=== PATIENT | male | born 1985 | race Caucasian/White ===

== ENCOUNTER 2016-07-22 12:52 | Inpatient (IN) | payer OTHER ==
[~2016-07-22] VITALS: Ht 182.9 cm; Wt 102.1 kg
[2016-07-22] MEDS ORDERED: SODIUM CHLORIDE 0.9% 1,000 ML IV ONE ×2 (12:54)
[2016-07-22] MEDS ORDERED: KETOROLAC TROMETH 30 MG/ML 1ML VIAL IV ONE (13:00)
[2016-07-22 13:59] LABS: Basophils # (auto) 0.1 uL; Basophils % (auto) 0.7 % (0.0-2.0); Eosinophils # (auto) 0.2 uL; Eosinophils % (auto) 1.7 % (0.0-7.0); Hematocrit 46.2 % (41.0-53.0); Hemoglobin 15.7 g/dL (13.5-17.5); Lymphocytes # (auto) 1.4 uL; Lymphocytes % (auto) 11.7 % (10.0-50.0); Mean Corpuscular Hemoglobin 31.4 pg (28.0-32.0); Mean Corpuscular Hgb Conc. 33.9 g/dL (32.0-36.0); Mean Corpuscular Volume 92.6 fL (80.0-100.0); Mean Platelet Volume 8.8 fL (7.4-10.4); Monocytes # (auto) 0.8 uL; Neutrophils # (auto) 9.6 uL; Neutrophils % (auto) 78.9 % (37.0-80.0); Platelet Count (auto) 328 10^3/uL (140-450); Red Cell Distribution Width 12.4 % (11.6-16.0); White Blood Cell 12.1 10^3/uL (4.4-10.8)
[2016-07-22 14:13] LABS: Anion Gap 10 (5-15); Aspartate Aminotransferase 30 U/L (15-37); Blood Urea Nitrogen 20 mg/dL (7-18); Carbon Dioxide 24 mmol/L (21-32); Chloride 108 mmol/L (98-107); GFR African American 105 mL/min; GFR Non-African American 87 mL/min; Glucose 94 mg/dL (74-106); Potassium 4.1 mmol/L (3.5-5.1); Sodium 142 mmol/L (136-145)
[2016-07-22] MEDS ORDERED: cefTRIAXone 1GM/50ML D5W 50 ML IV ONE ×2 (14:15→18:30)
[2016-07-22 14:18] LABS: Alkaline Phosphatase 75 U/L (45-117); Bilirubin, Total 0.9 mg/dL (0.2-1.0); Total Protein 7.3 g/dL (6.4-8.2)
[2016-07-22] MEDS ORDERED: ONDANSETRON HCL 4 MG/2 ML VIAL IV ONE (14:45)
[2016-07-22] MEDS ORDERED: MORPHINE SULFATE 4 MG/ML SYRG IV ONE (14:45)
[2016-07-22] MEDS ORDERED: HYDROcodone-ACET 10/325MG TAB PO ONE (17:15)
[2016-07-22] MEDS ORDERED: TEMAZEPAM 15 MG CAP PO PRN (18:15)
[2016-07-22] MEDS ORDERED: MORPHINE SULF INJ 2 MG/ML SYRINGE 1ML IV PRN (18:15)
[2016-07-22] MEDS ORDERED: ACETAMINOPHEN 325 MG TAB PO PRN (18:15)
[2016-07-22] MEDS ORDERED: ONDANSETRON HCL 4 MG/2 ML VIAL IV PRN (18:15)
[2016-07-22] MEDS ORDERED: NITROGLYCERIN 0.4 MG SL TAB SL PRN (18:15)
[2016-07-22] MEDS ORDERED: cloNIDine HCL 0.1 MG TAB PO PRN (18:30)
[2016-07-22] MEDS ORDERED: MULTIPLE VITAMIN TAB PO ONE (18:30)
[2016-07-22] MEDS: SODIUM CHLORIDE 0.9% 1,000 ML IV SCH (18:40)
[2016-07-22] MEDS: MORPHINE SULF INJ 2 MG/ML SYRINGE 1ML IV PRN (21:13)
[2016-07-22] MEDS: HYDROcodone-ACET 5/325MG TAB PO PRN (21:26)
[2016-07-22 21:51] VITALS: BP 133/78
[2016-07-22] MEDS ORDERED: SERT-135 PO (23:46)
[2016-07-22] MEDS ORDERED: LOSA50TA6 PO (23:46)
[2016-07-23 01:17] VITALS: BP 133/78
[2016-07-23] MEDS: SODIUM CHLORIDE 0.9% 1,000 ML IV SCH ×3 (03:06→21:59)
[2016-07-23 04:55] VITALS: BP 112/69
[2016-07-23] MEDS: HYDROcodone-ACET 5/325MG TAB PO PRN ×4 (06:18→20:54)
[2016-07-23 06:39] LABS: Basophils # (auto) 0.1 uL; Basophils % (auto) 0.5 % (0.0-2.0); Eosinophils # (auto) 0.3 uL; Eosinophils % (auto) 2.5 % (0.0-7.0); Hematocrit 42.7 % (41.0-53.0); Hemoglobin 14.6 g/dL (13.5-17.5); Lymphocytes # (auto) 1.6 uL; Lymphocytes % (auto) 15.4 % (10.0-50.0); Mean Corpuscular Hemoglobin 31.5 pg (28.0-32.0); Mean Corpuscular Hgb Conc. 34.2 g/dL (32.0-36.0); Mean Corpuscular Volume 91.9 fL (80.0-100.0); Mean Platelet Volume 8.7 fL (7.4-10.4); Monocytes # (auto) 0.7 uL; Monocytes % (auto) 6.6 % (0.0-12.0); Platelet Count (auto) 286 10^3/uL (140-450); Red Cell Distribution Width 13.4 % (11.6-16.0); White Blood Cell 10.6 10^3/uL (4.4-10.8)
[2016-07-23 06:51] LABS: INR 0.95 (0.9-1.15); Prothrombin Time 10.3 sec (9.37-12.3)
[2016-07-23 07:01] LABS: Albumin 3.2 g/dL (3.4-5.0); BUN/Creatinine Ratio 18.4; Bilirubin, Total 0.4 mg/dL (0.2-1.0); Calcium 8.5 mg/dL (8.5-10.1); Potassium 4.4 mmol/L (3.5-5.1); Total Protein 6.3 g/dL (6.4-8.2)
[2016-07-23 07:22] LABS: Urine Bilirubin Negative (Negative); Urine Blood TRACE /uL (Negative); Urine Color Yellow (Yellow); Urine Glucose Normal (Normal); Urine Ketone Negative (Negative); Urine Nitrite Negative (Negative); Urine RBC <1 /hpf (0 - 3); Urine Urobilinogen Normal (Negative); Urine pH 6.5 (5.0-8.0)
[2016-07-23 09:00] VITALS: BP 127/73
[2016-07-23] MEDS: cefTRIAXone 1GM/50ML D5W 50 ML IV SCH (09:16)
[2016-07-23] MEDS: TAMSULOSIN HYDROCHLORIDE 0.4 MG CAP PO SCH (09:16)
[2016-07-23] MEDS: MORPHINE SULF INJ 2 MG/ML SYRINGE 1ML IV PRN ×3 (09:29→19:40)
[2016-07-23] MEDS ORDERED: MULTIPLE VITAMIN TAB PO SCH (10:00)
[2016-07-23 13:00] VITALS: BP 116/74
[2016-07-23 17:08] VITALS: BP 129/75
[2016-07-23 22:00] VITALS: BP 114/75
[2016-07-23] MEDS: KETOROLAC TROMETH 30 MG/ML 1ML VIAL IV PRN (23:02)
[2016-07-24] MEDS: SODIUM CHLORIDE 0.9% 1,000 ML IV SCH ×2 (03:35→10:13)
[2016-07-24 05:30] VITALS: BP 125/51
[2016-07-24 06:24] LABS: Potassium 3.9 mmol/L (3.5-5.1)
[2016-07-24 06:30] LABS: BUN/Creatinine Ratio 17.7; Calcium 8.4 mg/dL (8.5-10.1)
[2016-07-24 06:31] LABS: Basophils # (auto) 0.1 uL; Eosinophils # (auto) 0.4 uL; Eosinophils % (auto) 4.9 % (0.0-7.0); Hematocrit 39.1 % (41.0-53.0); Hemoglobin 13.3 g/dL (13.5-17.5); Lymphocytes # (auto) 2.1 uL; Lymphocytes % (auto) 29.3 % (10.0-50.0); Mean Corpuscular Hemoglobin 31.5 pg (28.0-32.0); Mean Corpuscular Volume 92.9 fL (80.0-100.0); Mean Platelet Volume 9.8 fL (7.4-10.4); Monocytes # (auto) 0.6 uL; Monocytes % (auto) 8.4 % (0.0-12.0); Neutrophils # (auto) 4.1 uL; Neutrophils % (auto) 56.4 % (37.0-80.0); Platelet Count (auto) 239 10^3/uL (140-450); Red Cell Distribution Width 12.6 % (11.6-16.0); White Blood Cell 7.3 10^3/uL (4.4-10.8)
[2016-07-24] MEDS ORDERED: LIDOCAINE 1% HCL (LOCAL ANESTH.) INJ 20ML MDV ONE (06:48)
[2016-07-24] MEDS ORDERED: SUCCINYLCHOLINE CHLORIDE 20 MG/ML 10ML VIAL IV ONE (06:48)
[2016-07-24] MEDS ORDERED: fentaNYL CITRATE 100 MCG/2 ML VL ONE (06:57)
[2016-07-24] MEDS ORDERED: PROPOFOL 10 MG/ML 20 ML IV ONE (06:57)
[2016-07-24] MEDS ORDERED: SODIUM CHLORIDE LOCK 20 ML ONE (06:57)
[2016-07-24] MEDS ORDERED: MIDAZOLAM HCL 1MG/1ML-2 ML VIAL ONE (06:57)
[2016-07-24] MEDS ORDERED: ONDANSETRON HCL 4 MG/2 ML VIAL ONE (06:57)
[2016-07-24] MEDS ORDERED: ceFAZolin 1GM/50ML D5W 100 ML IV ONE (07:18)
[2016-07-24] MEDS ORDERED: ROCURONIUM 10MG/ML 10ML VIAL IV ONE (07:29)
[2016-07-24] MEDS ORDERED: METOCLOPRAMIDE HCL 5MG/ml INJ 2ml VIAL IV PRN (07:30)
[2016-07-24] MEDS ORDERED: METOCLOPRAMIDE HCL 5MG/ml INJ 2ml VIAL IV ONE (07:30)
[2016-07-24 08:30] VITALS: BP 151/89
[2016-07-24] MEDS: cefTRIAXone 1GM/50ML D5W 50 ML IV SCH (09:00)
[2016-07-24] MEDS: HYDROmorphone HCL 2 MG/ML VL IV PRN ×4 (09:15→09:50)
[2016-07-24] MEDS: TAMSULOSIN HYDROCHLORIDE 0.4 MG CAP PO SCH (10:20)
[2016-07-24] MEDS: MORPHINE SULF INJ 2 MG/ML SYRINGE 1ML IV PRN (10:21)
[2016-07-24] MEDS: KETOROLAC TROMETH 30 MG/ML 1ML VIAL IV PRN (10:58)
[2016-07-24 12:24] VITALS: BP 150/90
[2016-07-24] MEDS: HYDROcodone-ACET 5/325MG TAB PO PRN (13:12)
== END 2016-07-24 13:45 | disposition home or self-care (01) | DRG 669 ==
LOC: EDUNIT# 12:52 → EDBD 12:52 → ER 12:54 → TELE 12:55 → TELE-WESTW 20:17 → WEST WING 07-23 22:39
PROVIDERS: ADMIT Internal Medicine; ATTEND Internal Medicine
PROC: 0T768DZ Dilation of Right Ureter with Intraluminal Device, Via Natural or Artificial Opening Endoscopic (ICD-10-PCS; 2016-07-24)
PROC: 0TC68ZZ Extirpation of Matter from Right Ureter, Via Natural or Artificial Opening Endoscopic (ICD-10-PCS; principal; 2016-07-24 07:29)
DX: N13.2 Hydronephrosis with renal and ureteral calculous obstruction (principal); I12.9 Hypertensive chronic kidney disease with stage 1 through stage 4 chronic kidney disease, or unspecified chronic kidney disease; E86.0 Dehydration; F41.9 Anxiety disorder, unspecified; N18.2 Chronic kidney disease, stage 2 (mild); F17.210 Nicotine dependence, cigarettes, uncomplicated; K57.90 Diverticulosis of intestine, part unspecified, without perforation or abscess without bleeding; K76.0 Fatty (change of) liver, not elsewhere classified; Z82.49 Family history of ischemic heart disease and other diseases of the circulatory system; Z87.442 Personal history of urinary calculi; Z88.1 Allergy status to other antibiotic agents
CPT/HCPCS: 36415; 71010; 74000; 74176; 76000; 80048; 80053; 81001; 84484; 85025; 85610; 87040; 87086; 96361; 96365; 96375; J0330; J0690; J0696; J1885; J2001; J2250; J2405; J2704